=== PATIENT | male | born 1970 ===

== ENCOUNTER 2022-12-22 16:16 | Emergency (ER) | payer MEDICAID, SELFPAY ==
[2022-12-22 16:47] VITALS: BP 113/52; PULSE 65; RESP 16; TEMP 35.7; O2SAT 95; BMI 32.4
--- NOTE | 2022-12-22 16:48 | ED.UPPEXIN ---
HPI - Extremity Injury (Upper) General Chief Complaint: Extremity Injury, Upper Stated Complaint: right hand finger injury Time Seen by Provider: 12/22/22 16:54 Source: patient Mode of arrival: ambulatory Limitations: no limitations History of Present Illness HPI narrative: 52yo M w/no sig PMHx c/o crush injury to right 3rd digit s/p being shut in car door 8 days ago.?Now has redness/swelling and was able to express drainage from the site today. No fevers, chills, numbness, tingling. Related Data Previous Rx's Medication Instructions Recorded doxycycline monohydrate 100 mg 100 mg PO BID #20 tabs 12/22/22 tablet Allergies Allergy/AdvReac Type Severity Reaction Status Date / Time Penicillins [PENICILLINS] Allergy Unknown HIVES Unverified 12/22/22 16:47 Review of Systems Review of Systems: Yes all other systems are reviewed and are negative Constitutional: Constitutional: Reports no additional constitutional complaints, Denies body ache(s), Denies chills, Denies fever(s), Denies headache(s) and Denies weakness Eyes: Eyes: Reports no additional eye complaints and Denies change in vision ENT: Reports system reviewed and no additional complaints, except as documented, Denies dizziness, Denies headache(s), Denies nasal congestion, Denies nasal discharge and Denies neck pain Cardiovascular: Cardiovascular: Reports no additional cardiovascular complaints, Denies chest pain, Denies leg edema and Denies dyspnea Respiratory: Respiratory: Reports no additional respiratory complaints, Denies cough and Denies dyspnea Gastrointestinal: Gastrointestinal: Reports no additional gastrointestinal complaints, Denies abdominal pain, Denies diarrhea, Denies nausea and Denies vomiting Genitourinary: Genitourinary: Denies urinary incontinence Musculoskeletal: Musculoskeletal: Reports no additional musculoskeletal complaints, Denies back pain, Reports arthralgias, Denies joint swelling, Denies neck pain, Denies numbness and Denies tingling Integumentary/Breasts: Skin/Breast: Reports system reviewed and no additional complaints, except as docu, Reports swelling, Reports erythema and Denies rash Neurologic: Reports system reviewed and no additional complaints, except as documented, Denies Abnormal speech present, Denies dizziness, Denies headache(s), Denies numbness, Denies tingling and Denies weakness PMF Past Medical History Attestation statement: The following information was validated with the patient. Source: old records reviewed and nursing notes reviewed Social History Social History Advance Directives: No Advance Directives Information Provided: No Physical Exam Vital Signs: Vital Signs: Last Vital Signs Temp 96.3 F L 12/22/22 16:47 Pulse 65 12/22/22 16:47 Resp 16 12/22/22 16:47 BP 113/52 L 12/22/22 16:47 Pulse Ox 95 12/22/22 16:47 O2 Del Method Room Air 12/22/22 16:47 BMI result Body Mass Index 32.4 Const: General: cooperative, healthy appearing, comfortable and no acute distress Orientation/consciousness: patient oriented x3 Limitations: no limitations HEENT: Head: Yes normal to inspection Ears: hearing grossly normal bilaterally General nose exam: Normal external nose present Face and sinus: Yes normal facial exam Mouth: Normal oral and palatal mucosa present Throat: Yes posterior oropharynx normal Eyes: General: appearance normal, both eyes and all related structures Pupils: Equal, round and reactive pupils present Neck: Neck: Yes normal visual inspection Chest: Chest palpation & inspection: normal inspection of the chest Resp: Effort & Inspection: normal respiratory effort Auscultation: clear to auscultation bilaterally Cardio: Rate: regular rate Rhythm: regular rhythm Peripheral pulses: Peripheral pulses 2+ throughout GI: Inspection: Yes normal to inspection Palpation (GI): Soft to palpation and nontender Auscultation: normal bowel sounds Back/Spine/Pelvis: Thoracic/Lumbar Spine: thoracic and lumbar spine normal to inspection Skin: General skin exam: no rashes or lesions noted Neuro: General: patient oriented x3, no focal motor deficits and normal sensation to monofilament Cranial nerves: Yes Equal, round and reactive pupils present Cognition (Neuro): normal cognition Speech: No Abnormal speech present Gait exam (Neuro): Normal gait present Motor exam (neuro): 5/5 motor strength present throughout Extrem: Other: to the distal aspect of the right 3rd digit there is a paronychia along the medial and lateral nail bed with swelling and redness, it is draining there is from of the digit with no difficulty-sensation normal General: Yes normal to inspection Course Course Course Narrative: RME: 52yo M w/no sig PMHx c/o crush injury to right 3rd digit s/p being shut in car door 8 days ago. Was not seen after incident. Admits pus expressed today by family member +R 3rd digit distal swelling/erythema and paronychia. +small yellow drainage expressed XR ordered Full HPI, ROS and PE to be performed by primary ED provider. Reevaluation(s) Reevaluation #1: x-ray show mild soft tissue swelling without any other bony abnormality. Patient be discharged home with course of antibiotics. Reviewed worrisome signs and symptoms when to return to the emergency room. Comfortable plan for discharge home. Medical Decision Making Medical Decision Making MDM Narrative: 52yo M w/no sig PMHx c/o crush injury to right 3rd digit s/p being shut in car door 8 days ago now with redness/swelling distally with drainage from wound FROM Exam c/w with paronychia, already draining so no need for I&D Will check x-rays Differential Diagnosis Differential Diagnoses: The differential diagnosis associated with the presentation includes paronychia low concern for tenosynovitis with full range of motion of the digit, osteomyelitis Independent Interpretation I performed an independent interpretation of an: Plain X-Ray Interpretation: I independently reviewed the x-ray and agree with radiologist's report Radiology Impression Discussion of test interpretation with radiology: I have reviewed the radiologist's reading. Radiologist Impression: [place] [id number] XRay Report Signed Patient: Efra Rios MR#: [id number] : 1970 Acct:[id number] Age/Sex: 52 / M ADM Date: 12/22/22 Loc: .ED Attending Dr: Ordering Physician: Laila Barron Date of Service: 12/22/22 Procedure(s): XR finger RT min 2V Accession Number(s): [id number] cc: Laila Barron~ EXAMINATION: XR third finger, RIGHT CLINICAL INFORMATION: Crush injury middle finger? COMPARISON: None available.? TECHNIQUE: 3 views of the right third finger. FINDINGS: There is soft tissue swelling seen about the third distal interphalangeal joint. No definite acute fracture is identified. No dislocation is seen. A lucency is seen on oblique view involving the distal middle phalanx however this appears to have some sclerotic margins and represents a nutrient vessel. There is degenerative spurring seen about the first interphalangeal joint, the second distal interphalangeal joint, and the fourth distal phalangeal joint. XR/XR finger RT min 2V IMPRESSION: Soft tissue swelling without significant bony abnormality about the distal third finger. Prescription Management I considered prescription management with: Antibiotic paronychia requiring antibiotic prescription Discharge Plan Discharge Clinical Impression: Paronychia of finger Patient Disposition: Home, Self-Care Instructions: Paronychia (ED) Additional Instructions: warm soaks with Epson salt several times daily return for increasing swelling, increasing redness, fever greater than 100.4 Prescriptions: New doxycycline monohydrate 100 mg tablet 100 mg PO BID Qty: 20 0RF Referrals: Jacquelin Flores PA-C [Primary Care Provider] - 1 week (as needed)
[2022-12-22 18:02] VITALS: BP 115/60; PULSE 70; RESP 18; O2SAT 97
== END 2022-12-22 18:05 | disposition home or self-care (01) ==
PROVIDERS: Emergency Provider Emergency Medicine Emergency Medical Services; PCP Physician Assistant Medical
DX: L03.011 Cellulitis of right finger (principal); Z87.828 Personal history of other (healed) physical injury and trauma
CPT/HCPCS: 73140; 99283

== ENCOUNTER 2023-12-17 15:26 | Emergency (ER) | payer MEDICAID, SELFPAY ==
--- NOTE | ~2023-12-17 | US_ITS ---
EXAMINATION: US ABDOMEN LIMITED CLINICAL INFORMATION: Right upper quadrant pain. COMPARISON: CT abdomen pelvis dated 12/30/2016. TECHNIQUE: Real-time imaging of the right upper quadrant abdominal viscera. FINDINGS: PANCREAS: Normal. LIVER: The liver is normal in size. The liver contour is normal. Parenchymal echogenicity is mildly increased. No focal hepatic lesion. There is no intrahepatic biliary duct dilatation seen. GALLBLADDER: The gallbladder is physiologically distended without evidence of stones, sludge, polyps, wall thickening or pericholecystic fluid. COMMON BILE DUCT: Normal in caliber measuring 0.5 cm in diameter. RIGHT KIDNEY: Normal. No hydronephrosis. No renal calculi or focal parenchymal lesions. The kidney measures 9.5 cm in maximum dimension. FREE FLUID: None. US/US abdomen limited IMPRESSION: The liver demonstrates mildly increased echogenicity which may reflect some degree of steatosis. Otherwise normal right upper quadrant ultrasound.
--- NOTE | ~2023-12-17 | CT_ITS ---
EXAMINATION: CT ABDOMEN AND PELVIS WITH CONTRAST CLINICAL INFORMATION: Right upper quadrant abdominal pain. Nausea/vomiting. Fever. COMPARISON: 12/30/2016 TECHNIQUE: Multidetector volumetric images were obtained from the superior aspect of the liver through the pubic symphysis following administration 85 mL of Omnipaque 350 intravenous contrast. Sagittal and coronal reformatted images were obtained on the technologist's workstation. Oral contrast: No This CT examination was performed using dose optimization techniques as appropriate, variously including the following: *Automated exposure control *Adjustment of mA and/or kV according to patient size (this includes techniques or standardized protocols for targeted exams where dose is matched to indication/reason for exam; i.e. extremities or head) *Use of iterative reconstruction technique DLP: 725 mGy-cm FINDINGS: LUNG BASES: The visualized lung bases are unremarkable. LIVER, GALLBLADDER, AND BILIARY TREE: The liver is normal in size, shape, and attenuation. No focal hepatic lesion or biliary ductal dilatation is present. The gallbladder is unremarkable with no evidence of radiopaque gallstones, gallbladder wall thickening, or obvious pericholecystic inflammatory changes. PANCREAS: Unremarkable. SPLEEN: Unremarkable. ADRENAL GLANDS: Unremarkable. KIDNEYS AND URETERS: The kidneys are normal in size, shape, and attenuation. No hydronephrosis or hydroureter is a punctate 2 mm calculus is suspected within the left renal interpolar region, though specificity is limited by the presence of contrast material within the renal collecting systems. No perinephric stranding. Small subcentimeter foci of cortical hypoattenuation kidneys are too small to characterize, though statistically favored to correspond to simple cysts. No recommended imaging follow-up. BLADDER: Unremarkable. GASTROINTESTINAL TRACT: Stomach, small bowel, and colon are normal in caliber. No bowel wall thickening or surrounding inflammatory changes. Appendix is normal. No intraperitoneal free fluid or free air. ABDOMINAL WALL: No significant hernia is appreciated. LYMPH NODES: Normal. VASCULAR: Atherosclerotic calcifications are present of the abdominal aorta and iliac arteries. No aneurysmal dilatation. PELVIC VISCERA: Unremarkable. OSSEOUS STRUCTURES: Transitional anatomy at the lumbosacral junction. No acute osseous findings. CT/CT abdomen pelvis w IV con IMPRESSION: 1. No acute intra-abdominal or intrapelvic abnormalities. 2. Possible punctate 2 mm nonobstructing calculus in the left kidney. Specificity is limited by the presence of intravenous contrast material within the renal collecting systems. No hydronephrosis. Fleischner guidelines were followed.
[2023-12-17 15:38] VITALS: BP 150/91; PULSE 96; RESP 18; TEMP 36.9; O2SAT 96; BMI 30.7
--- NOTE | 2023-12-17 15:44 | ED_ITS ---
HPI - General Adult General Chief complaint: Abdominal Pain Stated complaint: fever, vomiting, diffuse pain Time Seen by Provider: 12/17/23 17:49 History of Present Illness ED Provider: Dr. Lester HPI narrative: 53 y/o M patient; without significant PMH (has not seen a doctor since before COVID); presents from home with report of three days of fever, sore throat, and nausea/vomiting. The patient endorses worsening abdominal pain over the last few days. He states the pain is worse in the morning and slowly improves throughout the day. Pain is generalized but patient points to RUQ when asked most severe region. Hx appendectomy. Related Data Previous Rx's ?Medication ?Instructions ?Recorded doxycycline monohydrate 100 mg 100 mg PO BID #20 tabs 12/22/22 tablet dicyclomine 20 mg tablet 20 mg PO TID PRN abdominal pain 12/18/23 #20 tabs lorazepam 1 mg tablet (Ativan) 1 mg PO BEDTIME PRN anxiety/sleep 12/18/23 #20 tabs pantoprazole 40 mg tablet,delayed 40 mg PO DAILY #20 tabs 12/18/23 release (Protonix) Allergies Allergy/AdvReac Type Severity Reaction Status Date / Time Penicillins [PENICILLINS] Allergy Unknown HIVES Verified 12/17/23 15:45 Review of Systems 2 Review of Systems: Yes all other systems are reviewed and are negative [facility] Past Medical History Attestation statement: The following information was validated with the patient. Source: old records reviewed Social History Social History Advance Directives: No Advance Directives Information Provided: No Do you have a plan to hurt others: No Plan Physical Exam ED Vital Signs: Vital Signs - 24 hr 12/17/23 15:38 12/17/23 19:44 12/17/23 23:16 Temperature 98.5 F 99.1 F 98.4 F Pulse Rate 96 62 62 Respiratory Rate 18 20 20 Blood Pressure 150/91 H 124/80 164/85 H Pulse Oximetry 96 94 96 Oxygen Delivery Method Room Air Room Air Room Air BMI result Body Mass Index 30.7 Patient is afebrile and hemodynamically stable Const General: cooperative HENMT Head: Yes normal to inspection and Yes atraumatic Eyes General: appearance normal, both eyes and all related structures Pupils: Equal, round and reactive pupils present EOM: EOMs intact bilaterally Neck Neck: Yes normal visual inspection, Yes full ROM and No tender Chest Chest palpation & inspection: normal inspection of the chest and normal palpation of entire chest wall Resp Effort & Inspection: normal respiratory effort, able to speak in complete sentences, no cough and no respiratory distress Auscultation: clear to auscultation bilaterally Cardio Rate: regular rate Rhythm: regular rhythm Peripheral pulses: Peripheral pulses 2+ throughout GI Other: RUQ abdominal tenderness to palpation Inspection: No Abdominal wall edema and No distended Palpation (GI): not firm, no guarding and not rigid Auscultation: normal bowel sounds General: Yes no CVA tenderness Back/Spine/Pelvis Back: no CVA tenderness Neuro Cranial nerves: Yes Equal, round and reactive pupils present Course Course Course Narrative: RME performed by Belkis Montes PA-C. Patient is a 53 year old assigned male at presenting to the emergency department with feeling generally unwell, cough, and sore throat. Detailed physical exam and review of systems are deferred to the label rewinder. Labs and swabs ordered. Patient placed back in the waiting room pending room availability and results. Reevaluation(s) Reevaluation #1: Patient is afebrile and hemodynamically stable. COVID/Flu/RSV and strep negative. Laboratory studies otherwise unremarkable. Ordered RUQ US and CT Abdomen/Pelvis W IV Contrast. US RUQ with mildly increased echogenicity which may reflect some degree of steatosis. Otherwise normal RUQ US. Patient is aware of his history of fatty liver disease. Labs otherwise: No leukocytosis. Mild hypercalcemia 11, providing 1L NC. Pending CT Abdomen/Pelvis. Plan: Transition care pending UA and CT Abdomen/Pelvis to Dr. Butcher. Condition: Stable Medications Administered Discontinued Medications Generic Name Dose Route Start Last Admin Trade Name Freq PRN Reason Stop Dose Admin Sodium Chloride 1,000 mls @ 999 mls/hr 12/17/23 19:00 12/17/23 23:51 Ns IV 12/17/23 20:00 Infused .Q1H1M REY Infusion Iohexol 85 ml 12/17/23 23:18 12/17/23 23:18 Iohexol 350 Mg/Ml 100 Ml Infus..Btl IV 12/17/23 23:19 85 ml ONCE ONE Administration Procedures EJ/Peripheral Line Arm L: Time Out Performed: Yes Skin Cleansed in Sterile Fashion: Yes Size (gauge): 18 IV Secured and Dressing Applied: Yes Patient Tolerated Procedure: well Medical Decision Making Medical Decision Making MDM Narrative: Patient with increased anxiety stressed out with diffuse abdominal pain mostly in the morning after vomiting poor sleep likely IBS workup negative ultrasound and CT scan was done by the previous provider which was also negative Lab Data MDM Lab Attestation statement: I reviewed the patient's lab results. 12/17/23 16:03 12/17/23 16:03 Labs: Lab Results 12/17/23 12/17/23 Range/Units 16:02 16:03 WBC 9.2 (4.8-10.8) X10*3/uL RBC 5.16 (4.60-5.80) X10*6/uL Hgb 15.2 (14.0-18.0) g/dl Hct 43.7 (42.0-52.0) % MCV 84.7 (80.0-98.0) fL MCH 29.5 (27.0-33.0) pg MCHC 34.8 (31.0-36.0) g/dl RDW 14.5 (11.0-16.0) % Plt Count 214 (160-400) X10*3/uL MPV 8.9 L (9.4-12.4) fL Immature Gran % (Auto) 0.2 (0.0-0.4) % Neut % (Auto) 81.4 H (45-73) % Lymph % (Auto) 11.2 L (20-40) % [place] % (Auto) 6.3 (2-11) % Eos % (Auto) 0.2 (0-4) % Baso % (Auto) 0.7 (0-2) % Lymph # (Auto) 1.0 L (1.2-4.9) X10*3/uL [place] # (Auto) 0.6 (0.1-1.2) X10*3/uL Eos # (Auto) 0.0 (0.0-0.4) X10*3/uL Baso # (Auto) 0.1 (0.0-0.2) X10*3/uL Abs Immat Gran (auto) 0.02 (0.00-0.03) X10*3/uL Absolute Neuts (auto) 7.5 (2.0-8.3) x10*3/uL Absolute Nucleated RBC 0.000 (0.0-0.012) X10*3/uL Nucleated RBC % (auto) 0.0 (0.0-0.2) /100WBC Sodium 136 (135-145) mmol/L Potassium 3.6 (3.3-5.1) mmol/L Chloride 96 (96-108) mmol/L Carbon Dioxide 28 (22-29) mmol/L Anion Gap 16 (12-20) BUN 7 L (9-16) mg/dL Creatinine 0.79 (0.5-1.4) mg/dL Estim Creat Clear Calc 116.3 Estimated GFR > 60 Random Glucose 102 (60-115) mg/dL Calcium 11.0 H (8.4-10.2) mg/dL Magnesium 1.6 (1.6-2.6) mg/dL Total Bilirubin 0.6 (0.0-1.0) mg/dL AST 32 (5-37) U/L ALT 31 (0-40) U/L Alkaline Phosphatase 54 (39-117) U/L Troponin I High Sens 3.7 (<3.5-35.0) ng/L Total Protein 8.0 (6.5-8.0) g/dL Albumin 4.9 (3.5-5.0) g/dL Lipase 21 (8-78) U/L Influenza Type A (PCR) NEGATIVE (Negative) Influenza Type B (PCR) NEGATIVE (Negative) RSV RNA Qual (PCR) NEGATIVE (Negative) SARS-CoV-2 RNA (RT-PCR) NEGATIVE (Negative) S. pyogenes GrpA [facility] Negative (Negative) Radiology Impression Discussion of test interpretation with radiology: I have reviewed the radiologist's reading. Radiologist Impression: EXAMINATION: US ABDOMEN LIMITED CLINICAL INFORMATION: Right upper quadrant pain. COMPARISON: CT abdomen pelvis dated 12/30/2016. TECHNIQUE: Real-time imaging of the right upper quadrant abdominal viscera. FINDINGS: PANCREAS: Normal. LIVER: The liver is normal in size. The liver contour is normal. Parenchymal echogenicity is mildly increased. No focal hepatic lesion. There is no intrahepatic biliary duct dilatation seen. GALLBLADDER: The gallbladder is physiologically distended without evidence of stones, sludge, polyps, wall thickening or pericholecystic fluid. COMMON BILE DUCT: Normal in caliber measuring 0.5 cm in diameter. RIGHT KIDNEY: Normal. No hydronephrosis. No renal calculi or focal parenchymal lesions. The kidney measures 9.5 cm in maximum dimension. FREE FLUID: None. US/US abdomen limited IMPRESSION: The liver demonstrates mildly increased echogenicity which may reflect some degree of steatosis. Otherwise normal right upper quadrant ultrasound. Discharge Plan Discharge Clinical Impression: Abdominal pain Patient Disposition: Home, Self-Care Instructions: Irritable Bowel Syndrome (DC), Abdominal Pain (ED), Anxiety (ED) Additional Instructions: Likely have IBS with increased anxiety Drink plenty of fluids Medication as prescribed Follow with your PCP Prescriptions: New dicyclomine 20 mg tablet 20 mg PO TID PRN (Reason: abdominal pain) Qty: 20 0RF lorazepam [Ativan] 1 mg tablet 1 mg PO BEDTIME PRN (Reason: anxiety/sleep) Qty: 20 0RF pantoprazole [Protonix] 40 mg tablet,delayed release (DR/EC) 40 mg PO DAILY Qty: 20 0RF No Action doxycycline monohydrate 100 mg tablet 100 mg PO BID Qty: 20 0RF Print Language: Spanish
[2023-12-17 16:06] LABS: MANUAL DIFF FLAG NO
[2023-12-17 16:10] LABS: Basophils Absolute Auto 0.1 X10*3/uL (0.0-0.2); Basophils Percent Auto 0.7 % (0-2); Eosinophils Percent Auto 0.2 % (0-4); Hematocrit 43.7 % (42.0-52.0); Hemoglobin 15.2 g/dl (14.0-18.0); Imm Gran Abs Auto 0.02 X10*3/uL (0.00-0.03); Imm Gran Pct Auto 0.2 % (0.0-0.4); Lymphocytes Percent Auto 11.2 % (20-40); Mean Corpuscular HGB Conc 34.8 g/dl (31.0-36.0); Mean Corpuscular Hemoglobin 29.5 pg (27.0-33.0); Mean Corpuscular Volume 84.7 fL (80.0-98.0); Mean Platelet Volume 8.9 fL (9.4-12.4); Monocytes Absolute Auto 0.6 X10*3/uL (0.1-1.2); Monocytes Percent Auto 6.3 % (2-11); Neutrophils Absolute Auto 7.5 x10*3/uL (2.0-8.3); Neutrophils Percent Auto 81.4 % (45-73); Platelet Count 214 X10*3/uL (160-400); Red Blood Count 5.16 X10*6/uL (4.60-5.80); Red Cell Distribution Width 14.5 % (11.0-16.0); White Blood Count 9.2 X10*3/uL (4.8-10.8)
[2023-12-17 16:15] LABS: IDNOW Serial# 58CA691E; Strep A Nucleic Acid Negative (Negative)
[2023-12-17 16:27] LABS: Alanine Aminotransferase 31 U/L (0-40); Albumin Level 4.9 g/dL (3.5-5.0); Alkaline Phosphatase 54 U/L (39-117); Anion Gap 16 (12-20); Aspartate Amino Transferase 32 U/L (5-37); Bilirubin Total 0.6 mg/dL (0.0-1.0); Blood Urea Nitrogen 7 mg/dL (9-16); Carbon Dioxide 28 mmol/L (22-29); Chloride 96 mmol/L (96-108); Creatinine Clr Calc Pharmacy 116.3; Estimated Glomerular Filt Rate > 60; Glucose Random 102 mg/dL (60-115); Magnesium 1.6 mg/dL (1.6-2.6); Potassium 3.6 mmol/L (3.3-5.1); Sodium 136 mmol/L (135-145)
[2023-12-17 16:44] LABS: Influenza A PCR NEGATIVE (Negative); Influenza B PCR NEGATIVE (Negative); Resp Syncy Virus RNA Qual PCR NEGATIVE (Negative); SARS COV2 PCR INHOUSE NEGATIVE (Negative)
--- NOTE | 2023-12-17 18:02 | PC.NURSE ---
a&ox4. vss and up to date. pt presents to the ED w/ n/v/fever/chills/upper abd pain. denies diarrhea. abd pain tender upon palpation. pain starts in epigastric area and radiates to RUQ. pt seen by ED provider/aware of care of plan moving forward. no sob/wob noted. respirations even/unlabored. plan of care ongoing. call oh placed within reach.
[2023-12-17 18:27] LABS: Lipase 21 U/L (8-78)
--- NOTE | 2023-12-17 18:35 | PC.NURSE ---
ultrasound being completed at this time.
[2023-12-17 18:37] LABS: Troponin-I High Sensitivity 3.7 ng/L (<3.5-35.0)
--- NOTE | 2023-12-17 18:58 | PC.NURSE ---
two attempts made at obtaining IV access. unsuccessful at this time. pt verbalizing being difficult stick/always needing an ultrasound guided IV. pt requesting for no other RN's to try until ultrasound IV can be placed. MD notified/aware.
--- NOTE | 2023-12-17 19:27 | PC.NURSE ---
pt refusing additional attempts at getting an IV line or for further labs. states he has multiple medical procedures and an IV drug abuse problem 30yrs ago. states he will only allow for an ultrasound guided IV. is aware.
[2023-12-17 19:44] VITALS: BP 124/80; PULSE 62; RESP 20; TEMP 37.3; O2SAT 94
--- NOTE | 2023-12-17 22:14 | PC.NURSE ---
continuing to refuse IV placement
[2023-12-17] MEDS: 0.9 % Sodium Chloride 1,000 ML 999 ML IV (22:50)
[2023-12-17 23:16] VITALS: BP 164/85; PULSE 62; RESP 20; TEMP 36.9; O2SAT 96
[2023-12-17] MEDS: iohexoL 350 MG/ML 100 ML INFUS..BTL 85 ML IV (23:18)
--- NOTE | 2023-12-17 23:22 | PC.NURSE ---
@[id number] ict support technicians went to ask patient if he would agree to have labs drawn. pt stated he had an ultrasound guided line and wanted them to be drawn off the line. this RN went back into the room. no line visible, asked pt if he had a line. he lifted up gown sleeve, IV line present. pt states the MD placed the line at 9PM. when asked why he did not say anything when this RN was in there around 10PM he states people just stopped checking in on me. CT notified that pt had line. labs drawn. fluids hung.
[2023-12-18] MEDS: Dicyclomine HCl 10 MG CAPSULE 20 MG PO (00:51)
[2023-12-18] MEDS: Omeprazole 40 MG CAPSULE.DR PO (00:51)
[2023-12-18 00:56] VITALS: BP 164/85; PULSE 62; RESP 20; TEMP 36.9; O2SAT 96
[2023-12-18 05:43] LABS: Parathyroid Hormone Intact 15.3 pg/mL (8.7-77.1)
[2023-12-20 10:54] LABS: Calcium, Ionized 5.6 mg/dL (4.7-5.5)
== END 2023-12-18 00:57 | disposition home or self-care (01) ==
PROVIDERS: Physician Assistant Medical; Emergency Provider Emergency Medicine
DX: R10.11 Right upper quadrant pain (principal); R50.9 Fever, unspecified; R11.2 Nausea with vomiting, unspecified; J02.9 Acute pharyngitis, unspecified; R05.9 Cough, unspecified; Z03.818 Encounter for observation for suspected exposure to other biological agents ruled out; Z79.899 Other long term (current) drug therapy
CPT/HCPCS: 0241U; 36415; 36556; 74177; 76705; 80053; 82330; 83690; 83735; 83970; 84484; 85025; 87651; 96360; 99284; Q9967

== ENCOUNTER 2024-11-29 14:41 | Emergency (ER) | payer MEDICAID, SELFPAY ==
--- OUTSIDE RECORDS SUMMARY | 2024-11-29 17:34 | XMS_ITS | Data Portability ---
Author Organization [facility], [facility] Address [address] [place] [address] Care Team Providers Care Mill Manager Name Role Phone LASHANDA BROWN Primary Care Provider Assessment No assessment recorded. Plan of Treatment Reminders Order Date Submit Date Provider Last Modified By Organization Details Last Modified Time Details Appointments None recorded. Lab None recorded. Referral None recorded. Procedures None recorded. Surgeries None recorded. Imaging None recorded. Medication Orders amitriptyli ne 50 mg tablet 2015 016 [id number], [address] [place] [address], [id number], 6 04:07:06 quetiapine 100 mg tablet 2015 016 [id number], [address] [place] [address], [id number], 6 04:07:39 trazodone 50 mg tablet 2015 016 [id number], [address] [place] [address], [id number], 6 04:06:31 amitriptyli ne 25 mg tablet 2015 016 [facility], [address] [place] [address], [id number], 6 04:06:18 hydromorpho ne 2 mg tablet 2015 016 [facility], [address] [place], [address], 6 04:03:17 hydromorpho ne 2 mg tablet 2015 016 [facility], [address] [place], [address], 6 04:02:19 Patient TargetsNo targets recorded. Patient Instructions Encounter Date Encounter Id Patient Instructions Last Modified By Organization Details Last Modified Time 11/29/2015 [id number] Quitting Tobacco : Care Instructions [email or web address] [id number] Not available 06/06/2016 04:02:07 deciding about using medicines to quit smoking [email or web address] [id number] Not available 06/06/2016 04:02:07 - Recommend avoiding NSAIDS such as advil or ibuprofen - Continue with protonix daily - Follow up for endoscopy as scheduled - Recommend small meals (can be liquid) until you have an appointment as eating makes your pain worse [email or web address] Not available 11/29/2015 15:57:46 Counseling done [email or web address] Not available 11/29/2015 15:58:08 12/09/2015 [id number] deciding about using medicines to quit smoking [email or web address] [id number] Not available 06/06/2016 04:03:25 Quitting Tobacco : Care Instructions [email or web address] [id number] Not available 06/06/2016 04:03:25 - Will do stool cultures - Will contact Dr. Gonsalez to see which labs are ordered for patient as he recently had blood work. Requesting report from their office. - Call Dr. Gonsalez's office and get appt MEGAN - Return to ER with worsening symptoms - Avoid cigarettes/tobacco , marijuana, alcohol and NSAIDS (ibuprofen, Motrin, Advil, etc) [email or web address] Not available 12/09/2015 15:35:00 Counseling done Tapering Cigarettes Goal for follow up visit My Health To Do List [email or web address] Not available 12/09/2015 15:34:25 02/07/2016 [id number] After a discussi on of treatment options, which included consideration of best practices, patient preferences, and the patient? s individual lifestyle and treatment goals, as well as consideration and attempted mitigation of any barriers to meeting the patient? s goals, the following treatment plan and objectives were adopted: - we discussed your chronic abdominal pain - continue protonix and hyoscyamine - continue fluids, small amounts regularly - if persistent fever, decreased intake/urination, or persistent vomiting call or go to the ER - zofran was offered but you left the appointment before a discussing further - I will not prescribe narcotics today as the cause of your pain and the course of your treatment is unclear. You can contact your GI doctor to discuss pain managment. If they feel narcotics are appropriate and want to discuss with me they can call me at the office monica Not available 02/07/2016 18:38:10 this was a 25 minute visit, over 50% of the time spent discussing treatment options and [facility] Not available 02/07/2016 18:40:46 02/19/2016 [id number] -For now, hold o ff on the seroquel as that doesn't play well with others -Continue protonix, carafate, and can take the hyoscyamine on top of that -START amitriptyline 25mg at bedtime for 1) Migraine and abdominal pain, 2) Mood and sleep -START trazodone 1/2 tablet (25mg) 3x daily to help with bowel motility -Get GI testing done -Follow-up in 2 weeks for abdominal symptoms Not available 02/19/2016 13:14:23 03/16/2016 [id number] -Restart seroque l 100-200mg daily -STOP the trazodone -Increase the amitriptyline to 50mg at bedtime - if you notice the jitteriness getting worse, let me know so I can change it to something else (that's for migraine and abdominal pain). -Stop taking the ibuprofen - while it may be providing you with brief pain relief, it is probably making you bleed and making the stomach more raw. -If you need more of the carafate, please let us know, because that's also protecting the stomach. -Keep taking the pantoprazole -Keep taking the hyoscyamine 4x daily (if it's making you tired, let us know) -I'm going to find out if [place] ever did a motility/emptying study and also talk to Dr. Gonsalez about whether it was done down here, if not, I'd like to try to get that set up. Not available 03/16/2016 09:09:40 Reason for Referral None Reported. Results Created Date Observation Date Name Description Value Unit Range Abnormal Flag Note LastModifiedBy Organization Detail LastModifiedTime 11/20/19 16 11/21/2015 CBC WBC 7.5 K/? ? ?L 4.2-9. 1 Not Available [address], [address], 11/21/2015 09:11:24 11/20/19 16 11/21/2015 CBC RBC 5.35 M/? ? ?L 4.63-6 .08 Not Available [address], [address], 11/21/2015 09:11:24 11/20/19 16 11/21/2015 CBC HGB 15.1 g/dL 13.7-1 7.5 Not Available [address], [address], 11/21/2015 09:11:24 11/20/19 16 11/21/2015 CBC HCT 45.3 % 40.1-5 1.0 Not Available [address], [address], 11/21/2015 09:11:24 11/20/19 16 11/21/2015 CBC MCV 84.7 ? ? ?L 79.0-9 2.2 Not Available [address], [address], 11/21/2015 09:11:24 11/20/19 16 11/21/2015 CBC MCH 28.2 pg 25.7-3 2.2 Not Available [address], [address], 11/21/2015 09:11:24 11/20/19 16 11/21/2015 CBC MCHC 33.3 g/dL 32.3-3 6.5 Not Available [address], [address], 11/21/2015 09:11:24 11/20/19 16 11/21/2015 CBC plt 216.0 K/? ? ?L 163.0- 337.0 Not Available [address], [address], 11/21/2015 09:11:24 11/20/19 16 11/21/2015 CBC MPV 11.0 9.4-12 .4 Not Available [address], [address], 11/21/2015 09:11:24 11/20/19 16 11/21/2015 CBC neut% 74.4 % 34.0-6 7.9 high Not Available [address], [address], 11/21/2015 09:11:24 11/20/19 16 11/21/2015 CBC neut# 5.6 1.8-5. 4 high Not Available [address], [address], 11/21/2015 09:11:24 11/20/19 16 11/21/2015 CBC lymph % 14.7 % 21.8-5 3.1 low Not Available [address], [address], 11/21/2015 09:11:24 11/20/19 16 11/21/2015 CBC lymph # 1.1 K/? ? ?L 1.3-3. 6 low Not Available [address], [address], 11/21/2015 09:11:24 11/20/19 16 11/21/2015 CBC mono% 6.5 % 5.3-12 .2 Not Available [address], [address], 11/21/2015 09:11:24 11/20/19 16 11/21/2015 CBC mono# 0.5 0.3-0. 8 Not Available [address], [address], 11/21/2015 09:11:24 11/20/19 16 11/21/2015 CBC eo% 3.9 % 0.8-7. 0 Not Available [address], [address], 11/21/2015 09:11:24 11/20/19 16 11/21/2015 CBC eo# 0.3 0.0-0. 5 Not Available [address], [address], 11/21/2015 09:11:24 11/20/19 16 11/21/2015 CBC baso% 0.5 % 0.2-1. 2 Not Available [address], [address], 11/21/2015 09:11:24 11/20/19 16 11/21/2015 CBC baso# 0.0 0.0-0. 1 Not Available [address], [address], 11/21/2015 09:11:24 11/20/19 16 11/21/2015 CBC RDW-CV 15.2 % 11.6-1 4.4 high Not Available [address], [address], 11/21/2015 09:11:24 11/26/1911/28/2015 H pylor i Ag, stool helicobacter pylori Ag, EIA, stool HELIC OBACT ER PYLOR I AG, EIA, STOOL MICRO NUMBE R: [id number] TEST STATU S: FINAL SPECI MEN SOURC E: STOOL SPECI MEN QUALI TY: ADEQU ATE RESUL T: Not Detec marco Antim icrob ials, pedro n pump inhib itors , and bismu th prepa ratio ns inhib it H. pylor i and inges tion up to two weeks prior to testi ng may cause false negat klaudia resul ts. If clini jah indic ated the test shoul d be repea marco on a new speci men obtai erica two weeks after disco ntinu ing treat ment. Not Available [facility] [address] [place], [place], [address], 11/28/2015 06:01:28 Result Notes None recorded. Problems Name Problem SNOMED Code Status Onset Date Resolution Date Notes Provider Name and Address Organization Details Recorded Time Anxiety 19796856 Completed 04/24/2015 Jacquelin Flores PA-C [address] [place] [address] [place], [address], [facility] 6 15:42:00 Ulcer 262363877 Active 2004, duodenal ulcer, taking med OTC Jacquelin Flores PA-C [address] [place] [address] [place], [address], [facility] 6 15:42:00 Recurren t depressi on 122671783 Completed 04/24/2015 Jacquelin Flores PA-C [address] [place], [place] [address] [address], [facility] 6 15:42:00 Gastroes ophageal reflux disease 464216573 Active Jacquelin Flores PA-C [address] [place] [address] [place], [address], [facility] 6 15:42:00 Borderli ne personal ity disorder 58597268 Active Jacquelin Flores PA-C [address] [place], [place] [address], [address], [facility] 6 15:42:00 Bipolar disorder 47388898 Active Jacquelin Flores PA-C [address] [place], [place] [address], [address], [facility] 6 15:42:00 Liver enzymes level above referenc e range 832792396 Active 2022 In ER 05/2023 Jacquelin Flores PA-C [address] [place] [address] [place] [address], [facility] 3 09:38:58 Problem Notes None recorded. Procedures Surgical History Date Name Laterality Status Provider Name and Address Organization Details Recorded Time 03/16/20 16 Smoking cessation counseling completed Nicole Beatty RN, BSN [facility] 03/16/2016 08:26:58 03/16/20 16 Carbon Monoxide Testing completed Nicole Beatty RN, BSN [facility] 03/16/2016 08:34:41 12/09/19 16 Smoking cessation counseling completed Poojadarrel Saez [facility] 12/09/2015 14:07:10 11/29/19 16 Smoking cessation counseling completed Pooajdarrel Saez [facility] 11/29/2015 13:33:22 11/29/19 16 Carbon Monoxide Testing completed Poojameseret Saez [facility] 11/29/2015 13:44:10 11/20/19 16 Smoking cessation counseling completed Poojameseret Saez [facility] 11/20/2015 14:31:53 04/24/20 15 Smoking cessation counseling completed Emy Diamond [facility] 04/24/2015 09:16:29 Appendectomy completed Jacquelin Flores PA-C [address] [place] [address], [address], [facility] 04/24/2015 09:26:16 Hernia Repair completed Jacquelin Flores PA-C [address] [place] [address], [address], [facility] 04/24/2015 09:26:16 Imaging Results None recorded. Procedure Notes None recorded. Medical Equipment None Reported. Allergies Allergen ID Allergen Name Allergen Category Reaction Reaction Severity Criticality Documentation Date Start Date Code Code System Note Provider Name and Address Organization Details Recorded Time 855372 Product containin g penicilli n (product) medicatio n hives Not available Not available 04/24/2015 03235 8001 SNOMED Emy gutierrez [facility] 5 09:01:37 Medications Name Sig Start Date Stop Date Status Note LastModified by Organization Details LastModified Time Carafate 100 mg/mL oral suspension GIVE 10 ML'S 3 TIMES A DAY BEFORE MEALS AND BEDTIME active Not Available Not Available No t Available clindamycin HCl 300 mg capsule TAKE ONE CAPSULE 3 TIMES A DAY UNTIL FINISHED active Not Available Not Available No t Available trazodone 50 mg tablet TAKE 0.5 TABLET(S) 3 TIMES A DAY BY ORAL ROUTE FOR 30 DAYS. 03/16 completed Not Available Not Available Not Available doxycycline monohydrate 100 mg tablet TAKE 1 TABLET BY MOUTH TWICE A DAY active Not Available Not Available No t Available quetiapine 100 mg tablet TAKE 1 TO 2 TABLETS BY MOUTH EVERY DAY AT BEDTIME active Not Available Not Available No t Available amitriptyli ne 50 mg tablet TAKE 1 TABLET(S) EVERY DAY BY ORAL ROUTE FOR 30 DAYS. active Not Available Not Available No t Available lithium carbonate ER 450 mg tablet,exte nded release TAKE 1 TABLET BY MOUTH TWICE A DAY active Not Available Not Available No t Available oxycodone-a cetaminophe n 5 mg-325 mg tablet TAKE 1 TABLET BY MOUTH EVERY 4 TO 6 HOURS NEEDED FOR PAIN active Not Available Not Available No t Available hydromorpho ne 2 mg tablet TAKE 1 TABLET BY MOUTH EVERY 4 HOURS NEEDED 02/18 completed Not Available Not Available Not Available amitriptyli ne 25 mg tablet TAKE 1 TABLET(S) EVERY DAY BY ORAL ROUTE IN THE EVENING FOR 30 DAYS. active Not Available Not Available No t Available oxycodone-a cetaminophe n 10 mg-325 mg tablet active Not Available Not Available No t Available lorazepam 2 mg tablet active Not Available Not Available No t Available pantoprazol e 40 mg tablet,april yed release TAKE 1 TABLET BY MOUTH EVERY DAY active Not Available Not Available No t Available hyoscyamine 0.[address] 1 mg 4 times a day by sublingua l route. active PRN Not Available Not Available No t Available dicyclomine 10 mg capsule TAKE ONE CAPSULE 4 TIMES A DAY 02/06 completed Not Available Not Available Not Available quetiapine 50 mg tablet TAKE 1 TABLET BY MOUTH TWICE A DAY NEEDED 11/28 completed Not Available Not Available Not Available Suboxone 8 mg-[address] FILMS UNDER THE TONGUE ONCE A DAY active Not Available Not Available No t Available Paxlovid 150 mg-100 mg tablets in a dose pack (Moderate Renal Dose) PLEASE SEE ATTACHED FOR DETAILED DIRECTION S active Not Available Not Available No t Available Vitals Date Recorded Body height Body weight Body mass index (BMI) Heart rate Systolic blood pressure Diastolic blood pressure Provider Name and Address Organization Details Last Updated DateTime 6 6146.8 cm 09949.4 7 g 0 kg/m2 76 /min 124 mm[Hg] 78 mm[Hg] Pooja Saez [facility] 6 13:40:30 Date Recorded Body height Body weight Body mass index (BMI) Heart rate Systolic blood pressure Diastolic blood pressure Provider Name and Address Organization Details Last Updated DateTime 6 6146.8 cm 35673.1 4 g 0 kg/m2 74 /min 130 mm[Hg] 80 mm[Hg] Pooja Saez [facility] 6 14:15:30 Date Recorded Body weight Body temperature Heart rate Oxygen saturation Oxygen saturation in Arterial blood by Pulse oximetry Systolic blood pressure Diastolic blood pressure Provider Name and Address Organization Details Last Updated DateTime 6 27197 g 98 [degF] 74 /min 97 % 97 % 124 mm[Hg] 70 mm[Hg] Gabi Hurley [facility] 6 09:40:01 Date Recorded Body weight Heart rate Systolic blood pressure Diastolic blood pressure Provider Name and Address Organization Details Last Updated DateTime 02/19/2016 48160.51 g 74 /min 122 mm[Hg] 80 mm[Hg] Pooja [facility] 02/19/2016 12:11:21 Date Recorded Body height Body weight Body mass index (BMI) Heart rate Systolic blood pressure Diastolic blood pressure Provider Name and Address Organization Details Last Updated DateTime 6 6146.8 cm 95055.0 6 g 0 kg/m2 72 /min 130 mm[Hg] 70 mm[Hg] Nicole Beatty RN, BSN [facility] 6 08:36:20 Social History Question Answer Notes LastModified by Organizat ion Details LastModified Time Tobacco Smoking Status Current Every Day Smoker half pack a day (started around age 24) [facility] 09:11:43 Do You Wear A Helmet When Biking? No [email or web address] Information not available 04/24/2015 What Is Your Level Of Caffeine Consumption? Moderate 2 Cups Coffee Per Day [email or web address] Information not available 04/24/2015 How Much Tobacco Do You Chew? None Information not available 04/24/2015 What Type Of Diet Are You Following? REGULAR [email or web address] Information not available 04/24/2015 Which Illicit Or Recreational Drugs Have You Used? No [email or web address] Information not available 04/24/2015 Education 2 Year College [email or web address] Information not available 04/24/2015 Are There Any Guns Present In Your Home? No [email or web address] Information not available 04/24/2015 Live Alone Or With Others? With Others Family (Children Do Not Live There) [email or web address] Information not available 04/24/2015 Marital Status kaylan Informatio n not available 04/24/2015 Mosquito Repellent Used Routinely No [email or web address] Information not available 04/24/2015 How Many Children Do You Have? 3 Crystal 19 Yo, Rami 17 Yo, Efra 7 Yo [email or web address] Information not available 04/24/2015 What Is Your Current Pack Years? 10-19packyea rs [email or web address] Information not available 04/24/2015 Seat Belts Used Routinely Yes [email or web address] Information not available 04/24/2015 Are You Sexually Active? Yes loreta Information not available 04/24/2015 Smoke Alarm In Home Yes Information not available 04/24/2015 What Types Of Sporting Activities Do You Participate In? No [email or web address] Information not available 04/24/2015 General Stress Level High [email or web address] Information not available 04/24/2015 Do You Use Sunscreen Routinely? No [email or web address] Information not available 04/24/2015 Sex: Unknown Functional Status Question Answer Note LastModified by Organizat ion Details LastModified Time What is your level of alcohol consumption? None Information not available 04/24/2015 What is your occupation? unemployed [email or web address] Information not available 04/24/2015 Mental Status None recorded. Family History Relationship Description Onset Age of this Age Resolved Age Notes LastModified by Organization Details LastModified Time Father Diabetes mellitus [email or web address] Not available 2014 09:28:58 Father Hyperlipidem ia Not available 2014 09:28:58 Maternal Grandfather Chronic obstructive pulmonary disease [email or web address] Not available 2014 09:28:58 Maternal Grandfather Myocardial infarction Not available 04/24 09:28:58 Medical History No medical history recorded. Past Encounters Encounter ID Performer Location Encounter Start Date Encounter Closed Date Diagnosis/Indication Diagnosis SNOMED-CT Code Diagnosis ICD10 Code Diagnosis Note [id number] Carin Peck , [facility], OFFICE [address] [place] [phone] 04/24/2015 08:48:52 04/24/2015 09:53:41 Tobacco user 733828334 Z72.0 - You would like to continue to use the vaporizer. Gastroesop hageal reflux disease 671836214 K21.9 - Start taking Pantoprazo le once daily in the morning 30 minutes before breakfast. - Avoid foods that are triggers - Avoid smoking as this can worsen your symptoms - Follow up in one month to evaluate symptoms. Ulcer 822089222 L98.9 - Referral to GI for evaluation of chronic symptoms and endoscopy. Bipolar disorder 8642289 4 F31.9 - You will continue with your current psychiatri st for now. - We will place a new referral for a psychiatri st but this will take time to get an appointmen t. Borderline personality disorder 13134149 F60.3 [id number] Carin Peck , [facility], OFFICE [address] [place] [id number] 11/20/2015 14:24:52 11/25/2015 10:09:57 Nicotine dependence 81719955 Z87.891 Tobacco user 050418508 Z 72.0 - You would like to continue to use the vaporizer. Gastroesop hageal reflux disease 799949521 K21.9 Epigastric pain 85400479 R10.13 [id number] Carin PATEL, [facility], OFFICE [address] [place] [id number] 11/29/2015 13:31:12 11/29/2015 14:57:26 Ulcer 287739429 L98.9 2004, duodenal ulcer, taking med OTC Nicotine dependence 5629 4008 Z87.891 Tobacco user 668921932 Z 72.0 [id number] Carin PATEL, [facility], OFFICE [address] [place] [id number] 12/09/2015 13:53:42 12/09/2015 15:51:20 Cigarette smoker 88172276 F17.210 Tobacco user 098559288 Z 72.0 Abdominal pain 52270234 R10.9 Diarrhea 05638160 R19.7 Gastroesop hageal reflux disease 895728259 K21.9 [id number] Brittnee Dobbs NP , [facility], OFFICE [address] [place] [id number] 02/07/2016 09:25:59 02/07/2016 12:33:03 Abdominal pain 89078944 R10.9 Gastroesop hageal reflux disease 260512236 K21.0 Gastritis 4346945 K29.70 pt became very frustrated when discussing pain management and left the appointmen t [id number] Carin Peck , [facility], OFFICE [address] [place] [id number] 02/19/2016 11:59:13 02/19/2016 13:23:07 Abdominal pain 68654717 R10.9 Ddx includes gastritis, gastropare sis or gastric dysmotilit y, h. pylori (needs testing), porphyria (unlikely, but worth ruling out), abdominal migraine. Less likely ischemia given age although pt is smoker, so something to keep in mind. Migraine 13001534 G43.90 9 Recommend prophylact ic medication at this point in time. Discussion as below. [id number] Carin Peck , [facility], OFFICE [address] [place] [id number] 03/16/2016 08:24:37 03/16/2016 09:14:42 Tobacco user 728416789 Z72.0 Abdominal pain 50963031 R10.9 Ddx includes gastritis, gastropare sis or gastric dysmotilit y, h. pylori (needs testing), porphyria (unlikely, but worth ruling out), abdominal migraine. Less likely ischemia given age although pt is smoker, so something to keep in mind. The copies of [place] records we have do not include any motility studies and it doesn't look like he's had those, but will double-michael ck. If we can't, I would still recommend assessment . Trazodone doesn't necessaril y seem to be helping much with the symptoms. Carafate seems to be helping some. Protonix may be helping some but it's unclear. Will have pt increase the amitriptyl ine and try to stop the ibuprofen for now as that is likely making the gut raw. Migraine 40165218 G43.90 9 Bipolar disorder 5818432 4 F31.9 Pt states that this the diagnosis this time. Mood is worse between abdominal pain and being off seroquel. Worsening anxiety due to being off the seroquel. Will prescribe medication so that he doesn't have stacked symptoms and plan on follow-up in another 2-3 weeks. Health Concerns Section Related Observation LastModified by Organization Detai ls LastModified Time None Recorded Concern Status LastModified by Organization Details LastModified Time None Recorded Advance Directives Directive None Recorded Payers Encounter Date Sequence Insurance Name Policy Number Policy Moody Covered Member ID Moody Member ID Guarantor Name 11/29/2015 1 [place] Efra Rios [id number] Efra Rios 12/09/2015 1 [place] Efra Rios [id number] Efra Rios 02/07/2016 1 [place] Efra Rios [id number] Efra Rios 02/19/2016 1 [place] Efra Rios [id number] Efra Rios 03/16/2016 1 [place] Efra Rios [id number] Efra Rios Notes Date Note Type Note Provider Name and Address Organization Details Recorded Time 11/29/2015 text/html a/vmg-Smoking CessationReported bypatient.Readiness to quit smokingPatient is considering stopping smoking in the next 6 months.; using vaporizer Duration:Currently smoking 10 cigarettes per day; Former smoker quit 1 year ago Control:Patient has first cigarette greater than 30 minutes after awakening; Patient has tried to stop smoking 3 times.; Patient has used the following methods to stop smoking nicotine replacementbuproprion; Methods that were effective? (patch and gum helped) smoking cessation support activitiesSupport from friends and family Ability to Manage Self CareOn a scale of 1-10 with 1 being not important and 10 being very important the patient rates importance of stopping smoking as 5Notes:Not interested in meds at this time. 45 year old patient with history of duodenal ulcer presents with ongoing abdominal pain, nausea. Patient was seen in office with presumed gastric or duodenal ulcer. Was referred to GI and had appt 11/27/15. Is taking the Protonix every day. Has appt with GI for colonoscopy and endoscopy on Wednesday12/03/15. Has taken advil twice since last appointment. Has no longer had any blood in the stool. Has not had many bowel movements as not eating much. Jacquelin Flores PA-C [address] [place], [phone], [facility] 11/29/2015 15:58:39 12/09/2015 text/html a/vmg-Smoking CessationReported bypatient.Readiness to quit smokingPatient is considering stopping smoking in the next 6 months.; using vaporizer Duration:Currently smoking 10 cigarettes per day; Former smoker quit 1 year ago Control:Patient has first cigarette greater than 30 minutes after awakening; Patient has tried to stop smoking 3 times.; Patient has used the following methods to stop smoking nicotine replacementbuproprion; Methods that were effective? (patch and gum helped) smoking cessation support activitiesSupport from friends and family Ability to Manage Self CareOn a scale of 1-10 with 1 being not important and 10 being very important the patient rates importance of stopping smoking as 5Notes:Not interested in meds at this time. 45 year old patient presents with ongoing abdominal pain, nausea. Patient was seen in office with presumed gastric or duodenal ulcer. Was referred to GI and had appt 11/27/15. Is taking the Protonix every day. Had appt with GI for colonoscopy and endoscopy on Wednesday12/03/15. Diagnosed with gastritis. Has no longer had any blood in the stool. Has not had many bowel movements as not eating much. 12 lb weight loss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
== END 2024-11-29 15:20 | disposition left against medical advice (07) ==
PROVIDERS: Emergency Provider Emergency Medicine
DX: M25.519 Pain in unspecified shoulder (principal); M25.559 Pain in unspecified hip; Z53.21 Procedure and treatment not carried out due to patient leaving prior to being seen by health care provider

== ENCOUNTER 2025-06-01 10:57 | Emergency (ER) | payer MEDICAID, SELFPAY ==
[2025-06-01 11:01] VITALS: BP 153/6; PULSE 102; RESP 18; TEMP 36.7; O2SAT 97; BMI 29.8
--- NOTE | 2025-06-01 11:03 | ED_ITS ---
HPI - General Adult General Chief complaint: Allergic Reaction Stated complaint: Allergic Rx Time Seen by Provider: 06/01/25 11:03 Source: patient, RN notes reviewed and old records reviewed Mode of arrival: ambulatory Limitations: no limitations History of Present Illness ED Provider: Michael [facility] narrative: Patient is a 54-year-old male without significant history presenting to the [facility] department with 3 days of pruritic rash. States the rash began in his right groin area and has since spread to his arms, chest, face and head. He denies any known allergic trigger but recently used Afrin nasal spray. Also tested positive for COVID 2 weeks ago. Took 50 mg of Benadryl 3 hours prior to arrival. Complains of sensation of difficulty swallowing. Patient denies any abdominal pain, nausea, vomiting, diarrhea. MD complaint: rash Onset (ago): day(s) Related Data Previous Rx's ?Medication ?Instructions ?Recorded doxycycline monohydrate 100 mg 100 mg PO BID #20 tabs 12/22/22 tablet dicyclomine 20 mg tablet 20 mg PO TID PRN abdominal pain 12/18/23 #20 tabs lorazepam 1 mg tablet (Ativan) 1 mg PO BEDTIME PRN anx iety/sleep 12/18/23 #20 tabs pantoprazole 40 mg tablet,delayed 40 mg PO DAILY #20 t abs 12/18/23 release (Protonix) prednisone 20 mg tablet See Rx Instructions .Route 1 08/02/24 .COMPLEX #18 tabs Allergies Allergy/AdvReac Type Severity Reaction Status Date / Time Penicillins (PENICILLINS) Allergy Unknown HIVES Verified 06/01/25 11:02 Review of Systems Review of Systems: As per HPI Yes all other systems are reviewed and are negative Constitutional: Constitutional: Reports as per HPI [facility] Social History Social History (System 09/21/24 @ 13:20 by Brittni Hernandez) Advance Directives: No Advance Directives Information Provided: No Physical Exam ED Vital Signs: Vital Signs - 24 hr 06/01/25 11:01 06/01/25 11:27 06/01/25 15:53 Temperature 98.0 F 97.9 F Pulse Rate 102 H 77 79 Respiratory Rate 18 16 Blood Pressure 153/6 H 131/72 139/76 Pulse Oximetry 97 96 Oxygen Delivery Method Room Air Room Air BMI result Body Mass Index 29.8 Vital signs have been reviewed and appear to be correct. Blood pressure normal. Heart rate normal. Respiratory rate normal. Temperature normal. Oxygen saturation normal. Const General: cooperative, healthy appearing and no acute distress Orientation/consciousness: oriented to person, oriented to place, oriented to time and patient oriented x3 Limitations: no limitations [facility] Head: Yes normocephalic and Yes atraumatic Ears: hearing grossly normal bilaterally and external ears normal General nose exam: Normal external nose present and Normal nasal mucous membranes and turbinates present Face and sinus: Yes face symmetric and Yes erythema (erythematous blanchable wheals to chin) Mouth: Normal oral and palatal mucosa present, lip normal, tongue normal, oropharynx normal, moist mucous membranes, no audible dysphonia, no drooling and no trismus Throat: Yes posterior oropharynx normal, Yes uvula midline and No uvular edema Eyes Pupils: Equal, round and reactive pupils present Neck Neck: Yes normal visual inspection, Yes full ROM, Yes no lymphadenopathy, Yes trachea midline, Yes supple and No anterior neck swelling Resp Effort & Inspection: normal respiratory effort and able to speak in complete sentences Auscultation: clear to auscultation bilaterally and no wheezes Cardio Rate: regular rate Rhythm: regular rhythm Heart sounds: S1 normal heart sound present and S2 normal heart sound present GI Palpation (GI): Soft to palpation and nontender Auscultation: normoactive bowel sounds General: Yes no CVA tenderness Back/Spine/Pelvis Back: no CVA tenderness Skin Other: erythematous blanchable annular wheals with distinct borders to right groin, bilateral arms, neck, chin, and posterior scalp General skin exam: elasticity normal and turgor normal Neuro General: oriented to person, oriented to place, oriented to time, patient oriented x3, moves all extremities, no focal motor deficits and CN's II-XI intact bilaterally Cranial nerves: Yes Equal, round and reactive pupils present Cognition (Neuro): normal cognition Extrem General: Yes full ROM, Yes no pedal edema and Yes no calf tenderness Psych Mental Status: mental status grossly normal Affect: normal affect Thought process: Normal thought process present Course Course Course Narrative: Rapid medical examination performed in triage by Belkis Montes PA-C: Patient is a 54 year old assigned male at presenting to the emergency department with an allergic reaction. Detailed physical exam and review of systems are deferred to the air hole driller. 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 Medications Administered Discontinued Medications Generic Name Dose Route Start Last Admin Trade Name Candida PRN Reason Stop Dose Admin Diphenhydramine HCl 25 mg 06/01/25 12:00 06/01/25 12:30 Diphenhydramine Hcl 50 Mg/Ml Vial IVPUSH 06/01/25 12:01 25 mg ONCE ONE Administration Epinephrine 0.3 mg 06/01/25 11:02 06/01/25 11:27 Epinephrine 1 Mg/Ml Vial IM 06/01/25 11:03 0.3 mg STAT STA Administration Famotidine 20 mg 06/01/25 11:02 06/01/25 11:54 Famotidine/Pf 20 Mg/2 Ml Vial IVPUSH 06/01/25 11:03 20 mg ONCE ONE Administration Sodium Chloride 1,000 mls @ 999 mls/hr 06/01/25 11:15 06/01/25 11:54 Ns IV 06/01/25 12:15 999 mls/hr .Q1H1M REY Administration Loratadine 10 mg 06/01/25 14:06 06/01/25 15:52 Loratadine 10 Mg Tablet PO 06/01/25 14:07 10 mg ONCE ONE Administration Methylprednisolone Sodium Succinate 125 mg 06/01/25 11:02 06/01/25 11:52 Methylprednisolone Sod Succ 125 Mg/2 Ml Vial IVPUSH 06/01/25 11:03 125 mg ONCE ONE Administration Procedures Procedure Narrative Procedure Narrative: Ultrasound Guided Peripheral Intravenous Catheter Placement Indication: Intravenous Access Location: Left ??Vascular Location of Catheter Tip: Brachial Provider: Self I was approached by nursing staff and informed that multiple unsuccessful attempts had been made to establish IV access in the patient. The patients arm was surveyed with the ultrasound for verification of vessel collapsibility, patency, depth and caliber, as well as identification of nearby structures. The target area was prepped with chlorhexidine. A tourniquet was placed proximally on the extremity. Under real-time ultrasound guidance, an [20 G 2.25 inch AccuCath nontunneled catheter] ? was advanced into the target vein. Dark blood was visualized in the flash chamber. The catheter was easily advanced into the vein. The catheter was evacuated of air and flushed with sterile saline. The catheter was secured in place with a tegaderm. The patient tolerated the procedure well and there were no complications. Estimated Blood Loss: 1mL Total Time for Procedure: 5min Images Stored CPT: 73391; 94323 Medical Decision Making Medical Decision Making [facility] Narrative: Patient is a 54-year-old male without significant history presenting to the emergency department with 3 days of pruritic rash. On exam patient is awake, A+Ox3, VS WNL, afebrile, normal neurological exam without focal deficits, physical exam findings as above. Given reported symptoms and physical exam findings, initial differential includes but is not limited to urticaria due to recent viral infection, contact dermatitis, medication allergy, atopic dermatitis. Do not suspect anaphylaxis. Given extent of uriticaria and patient reporting difficult swallowing, IM epinephrine given along with diphenhydramine, famotidine, Solu-Medrol. Viral serology negative. Patient observed in the emergency department for nearly 6 hours with significant improvement in symptoms. Feel he is stable for discharge home at this time. Will discharge on tapering course of prednisone, also advised that he continue an antihistamine as well as famotidine. Will refer to Dermatology for ongoing symptoms. Return precautions discussed. Patient verbalized understanding of and agreement with plan. Differential Diagnosis Differential Diagnoses: The differential diagnosis associated with the presentation includes As per [facility] Admission/Observation Consideration of admission/observation: Escalation of care including admission/observation considered Patient would have been admitted to the hospital and transferred to appropriate facility had their clinical presentation warranted hospital admission. Lab Data [facility] Lab Attestation statement: I reviewed the patient's lab results. as per [facility] Labs: Lab Results 06/01/25 Range/Units 11:18 Influenza Type A (PCR) NEGATIVE (Negative) Influenza Type B (PCR) NEGATIVE (Negative) RSV RNA Qual (PCR) NEGATIVE (Negative) SARS-CoV-2 RNA (RT-PCR) NEGATIVE (Negative) External Record Review External record reviewed: Inpatient record, Office record and Outpatient record Prescription Management I considered prescription management with: Other Discharge Plan Discharge Clinical Impression: Urticaria Patient Disposition: Home, Self-Care Instructions: Urticaria (ED) Additional Instructions: You were evaluated in the emergency department today for a rash. Your evaluation did not reveal evidence of conditions requiring emergent medical treatment. You are being prescribed a tapering dose of a steroid called prednisone to decrease inflammation. We also recommend that you take a daily antihistamine such as loratadine (Claritin) or cetirizine (Zyrtec). You can also add over the counter famotidine (Pepcid) which is a different type of antihistamine. You can apply a thick unscented lotion to the affected areas such as Eucerine or Vanicream several times daily. Follow up with your primary care provider this week. If your symptoms do not improve, follow up with a ip technology transactions attorney. Return to the emergency department if you develop difficulty breathing or shortness of breath, swelling to lips, tongue, fever, rash inside your mouth or to your palms/soles or any other concerning symptoms. Prescriptions: New prednisone 20 mg tablet See Rx Instructions .ROUTE .COMPLEX Qty: 18 0RF Rx Instructions: 60mg (3 tabs) x 3 days, then 40mg (2 tabs) x 3 days, then 20mg (1 tab) x 3 days No Action doxycycline monohydrate 100 mg tablet 100 mg PO BID Qty: 20 0RF dicyclomine 20 mg tablet 20 mg PO TID PRN (Reason: abdominal pain) Qty: 20 0RF lorazepam [Ativan] 1 mg tablet 1 mg PO BEDTIME PRN (Reason: anxiety/sleep) Qty: 20 0RF pantoprazole [Protonix] 40 mg tablet,delayed release (DR/EC) 40 mg PO DAILY Qty: 20 0RF Referrals: [facility] [Provider Group] - 1 week Clinical Impression: Urticaria Print Language: Bengali
--- NOTE | 2025-06-01 11:18 | PC.NURSE ---
Patient presents to the ED from home with allergic reaction. Patient states he took a nasal spray 3 days ago and ever since has been itching. Over night, he noticed left facial swelling and difficulty speaking d/t swelling. Patient took oral benadrly at home and came here. Patient maintaining airway, on room air, facial swelling seen with generalize raised hives. Patient connected to monitor, BP stable. Multiple IV attempts, ultrasound IV pending.
[2025-06-01 11:27] VITALS: BP 131/72; PULSE 77
[2025-06-01 11:59] LABS: Resp Syncy Virus RNA Qual PCR NEGATIVE (Negative); SARS COV2 PCR INHOUSE NEGATIVE (Negative)
[2025-06-01 15:53] VITALS: BP 139/76; PULSE 79; RESP 16; TEMP 36.6; O2SAT 96
== END 2025-06-01 17:25 | disposition home or self-care (01) ==
PROVIDERS: Registered Nurse Emergency; Emergency Provider Emergency Medicine
DX: R21 Rash and other nonspecific skin eruption (principal)
CPT/HCPCS: 36410; 76937; 87637; 96372; 96374; 96375; 96376; 99283; 99284; J0165; J1200; J1308; J2919